=== PATIENT | male | born 1995 | race Caucasian/White ===

== ENCOUNTER 2021-06-01 01:45 | Emergency (ER) | payer SELFPAY ==
[~2021-06-01] VITALS: Ht 170.2 cm; Wt 70.3 kg
[2021-06-01 01:52] VITALS: BP 149/88
--- NOTE | 2021-06-01 01:52 | NUR ---
ARTUR HUGHES CHP TO CHAIR Arina
--- NOTE | 2021-06-01 02:15 | NUR ---
SEEN AND EXAMINED BY JOSELIN
[2021-06-01 02:30] VITALS: BP 148/86
--- NOTE | 2021-06-01 02:30 | NUR ---
PATIENT BIB [facility] POLICE DEPT. PATIENT EXAMINED BY DR. WIGGINS. PATIENT MEDICALLY CLEARED AND RELEASED IN CUSTODY IN STABLE CONDITION. ORIGINAL PRE-BOOK FORM GIVEN TO OFFICER PATRICIO [id number].
== END 2021-06-01 02:30 ==
LOC: MED 01:45
DX: Z04.1 Encounter for examination and observation following transport accident (principal); Z02.89 Encounter for other administrative examinations; V98.8XXA Other specified transport accidents, initial encounter; Y93.89 Activity, other specified; Y92.89 Other specified places as the place of occurrence of the external cause; Y99.8 Other external cause status
CPT/HCPCS: 99283